=== PATIENT | male | born 1975 | race Caucasian/White ===

== ENCOUNTER 2021-05-10 02:59 | Emergency (ER) | payer SELFPAY ==
[2021-05-10 04:15] LABS: HEMOGLOBIN 15.5 gm/dl (14.0-17.5); RED BLOOD COUNT 5.32 M/UL (4.20-5.50); WHITE BLOOD COUNT 7.8 K/UL (4.5-11.0)
[2021-05-10 04:35] LABS: BUN/CREATININE RATIO 12 (0-10)
== END 2021-05-10 05:10 | disposition home or self-care (01) ==
LOC: ER1 02:59
PROVIDERS: Physician Assistant
DX: R06.00 Dyspnea, unspecified (principal); Z20.822 Contact with and (suspected) exposure to COVID-19; I11.9 Hypertensive heart disease without heart failure; Z88.0 Allergy status to penicillin; Z88.8 Allergy status to other drugs, medicaments and biological substances
CPT/HCPCS: 0240U; 36415; 71045; 80053; 85025; 99285

== ENCOUNTER 2022-04-12 20:32 | Emergency (ER) | payer SELFPAY ==
[2022-04-13] MEDS ORDERED: PEPCID40 MG PO (01:02)
[2022-04-13] MEDS ORDERED: PREDNISONE 20 M20 MG PO (01:02)
[2022-04-13] MEDS ORDERED: ZYRTEC10 MG PO (01:02)
== END 2022-04-13 01:15 | disposition home or self-care (01) ==
LOC: ER1 20:32
DX: R21 Rash and other nonspecific skin eruption (principal); I10 Essential (primary) hypertension; G62.9 Polyneuropathy, unspecified; Z87.440 Personal history of urinary (tract) infections; Z88.6 Allergy status to analgesic agent; Z88.0 Allergy status to penicillin; Z88.1 Allergy status to other antibiotic agents; Z88.5 Allergy status to narcotic agent
CPT/HCPCS: 96372; 99282; J2930